=== PATIENT | female | born 1980 | race Caucasian/White ===

== ENCOUNTER 2017-06-08 17:57 | Emergency (ER) | payer MEDICAID ==
[2017-06-08 17:57] VITALS: BMI 42.2
[2017-06-08 18:03] VITALS: BP 153/63; PULSE 100; RESP 18; TEMP 98.8; O2SAT 98
[2017-06-08] MEDS ORDERED: Albuterol-Ipratrop 3 mg / 0.5 (3 ml) UD INH STA (19:01)
--- NOTE | 2017-06-08 19:07 | ED PDOC ---
HPI: CCC, URI, Sore Throat Time Seen by Provider: 06/08/17 18:15 Chief Complaint (Nursing): Cough, Cold, Congestion Chief Complaint (Provider): Cough History Per: Patient History/Exam Limitations: no limitations Onset/Duration Of Symptoms: Days (x 4) Current Symptoms Are (Timing): Still Present Additional Complaint(s): 36 year old female presents to the Emergency Department complaining of a cough for 4 days. Cough is productive of green and yellow phlegm. Patient reports that she smokes a pack per day. She denies any fever or chills. no recent travel. PMD: none Past Medical History Reviewed: Historical Data, Nursing Documentation, Vital Signs Vital Signs: Last Vital Signs Temp 98.8 F 06/08/17 18:01 Pulse 100 H 06/08/17 18:01 Resp 18 06/08/17 18:01 BP 153/63 H 06/08/17 18:01 Pulse Ox 98 06/08/17 20:44 - Medical History Other PMH: abnormal calcium levels - Surgical History Surgical History: No Surg Hx - Family History Family History: States: No Known Family Hx - Living Arrangements Living Arrangements: With Family - Social History Current smoker - smoking cessation education provided: Yes SMOKER/PACKS PER DAY:: 1 Alcohol: None Drugs: Denies - Home Medications Home Medications: Ambulatory Orders Medication Instructions Recorded Calcitriol [Rocaltrol] 0.5 mcg PO BID #60 sgl 09/20/16 Calcium Carbonate/Vitamin D 1 tab PO TID #90 tab 09/20/16 [Oscal-D 250 mg-125 Units Tab] Ergocalciferol [Drisdol 50,000 1 cap PO Q7D #7 cap 09/20/16 Intl Units Cap] Sevelamer [Renagel] 400 mg PO TIDWM #90 tab 09/20/16 Albuterol HFA [Ventolin HFA 90 1 puff IH Q6 PRN #1 inhaler 06/08/17 mcg/actuation (8 g)] Azithromycin [Zithromax] 250 mg PO DAILY #6 tab 06/08/17 Benzonatate 200 mg PO TID PRN #20 capsule 06/08/17 - Allergies Allergies/Adverse Reactions: Allergies Allergy/AdvReac Type Severity Reaction Status Date / Time No Known Allergies Allergy Verified 03/09/17 10:22 Review of Systems ROS Statement: Except As Marked, All Systems Reviewed And Found Negative Constitutional: Negative for: Fever Cardiovascular: Negative for: Chest Pain Respiratory: Positive for: Cough, Sputum (yellow and green) Physical Exam - Reviewed Nursing Documentation Reviewed: Yes Vital Signs Reviewed: Yes - Physical Exam Appears: Positive for: Well, Non-toxic, No Acute Distress Head Exam: Positive for: ATRAUMATIC, NORMAL INSPECTION, NORMOCEPHALIC Skin: Positive for: Normal Color Eye Exam: Positive for: Normal appearance ENT: Positive for: Normal ENT Inspection. Negative for: Pharyngeal Erythema, Tonsillar Exudate Respiratory: Positive for: Rhonchi, Wheezing. Negative for: Accessory Muscle Use, Respiratory Distress Extremity: Negative for: Pedal Edema Neurologic/Psych: Positive for: Alert, Oriented - Laboratory Results Urine POC: Negative - ECG O2 Sat by Pulse Oximetry: 98 (RA) Pulse Ox Interpretation: Normal - Other Rad CXR X-Ray: Interpreted by Me, Viewed By Me X-Ray Interpretation: no infiltrate Nebulizer Treatments/Peak Flow - Duonebs Number of Bronchodilator Doses given?: 1 (chyna) - Pre/Post Peak Flow Pre Treatment Peak Flow: 200 Post treatment Peak Flow: 250 - Steroid Treatment Steroid: Not Clinically Indicated - Clinical Response Clinical Response: Improved Medical Decision Making Medical Decision Making: Time: 19:01 Clinical Impression:36 year old female with cough Initial Plan: * Urine * Chest X-ray * Albuterol 3 ml INH * Nebulizer Treatment * Peak Flow Pre/ Post --CXR viewed by me, no acute disease. --Patient reports improvement after medications given, and is stable for discharge home. --Will d/c with zithromax, albuterol inhaler for congestion, and teselder perles for cough. Diagnosis: Bronchitis Scribe Attestation: Documented by Consuelo Garcia, acting as a scrdominick Porter PA-C Provider Staceyibe Attestation: All medical record entries made by the Scribe were at my direction and personally dictated by me. I have reviewed the chart and agree that the record accurately reflects my personal performance of the history, physical exam, medical decision making, and the department course for this patient. I have also personally directed, reviewed, and agree with the discharge instructions and disposition. Disposition - Clinical Impression Clinical Impression: Bronchitis - Patient ED Disposition Is Patient to be Admitted: No Counseled Patient/Family Regarding: Studies Performed, Diagnosis, Need For Followup, Rx Given, Smoking Cessation - Disposition Referrals: [facility] [Outside] Disposition: Routine/Home Disposition Time: 20:53 Condition: STABLE Additional Instructions: Take prescription medications as directed. Follow up with clinic or primary doctor in 2-3 days. Stop smoking!! Prescriptions: Albuterol HFA [Ventolin HFA 90 mcg/actuation (8 g)] 1 puff IH Q6 PRN #1 inhaler PRN Reason: Cough Azithromycin [Zithromax] 250 mg PO DAILY #6 tab Benzonatate 200 mg PO TID PRN #20 capsule PRN Reason: Cough Instructions: Acute Bronchitis (ED), How to Stop Smoking (ED) Forms: [employer] (Nepali)
[2017-06-08] MEDS ORDERED: Albuterol-Ipratrop 3 mg / 0.5 (3 ml) UD ONE (19:21)
--- NOTE | 2017-06-09 08:39 | RAD ---
HISTORY: Cough. COMPARISON: No prior. TECHNIQUE: Chest PA and lateral FINDINGS: LUNGS: No active pulmonary disease. PLEURA: No significant pleural effusion identified. No pneumothorax apparent. CARDIOVASCULAR: Normal. OSSEOUS STRUCTURES: No significant abnormalities. VISUALIZED UPPER ABDOMEN: Normal. OTHER FINDINGS: None. IMPRESSION: No active disease. Concordant results with the preliminary interpretation rendered by the emergency department physician procedure.
== END 2017-06-08 21:05 | disposition home or self-care (01) ==
LOC: H.ER 17:57
DX: J40 Bronchitis, not specified as acute or chronic (principal); F17.210 Nicotine dependence, cigarettes, uncomplicated